=== PATIENT | male | born 1955 | race Caucasian/White ===

== ENCOUNTER 2017-05-02 09:25 | Emergency (ER) | payer BC ==
[~2017-05-02] VITALS: Ht 175.3 cm; Wt 95.0 kg
[~2017-05-02 09:25] MED LIST: AUGMENTIN875 MG PO; CALCIUM 500 +1 EAC5 PO; CIPRO500 MG PO; CRESTOR20 MG PO; CRESTOR40 MG PO; FISH OIL300 MG PO; LEVAQUIN750 MG PO; MEN'S MULTI-VI1 EACH PO; PERCOCET 5/31 TABLET PO; VITAMIN C500 M1 PO
[2017-05-02] MEDS ORDERED: DOXYCYCLINE MO100 MG PO (10:03)
[2017-05-02 10:11] VITALS: BP 131/79
== END 2017-05-02 10:12 | disposition home or self-care (01) ==
LOC: EME 09:25
DX: L03.113 Cellulitis of right upper limb (principal)
CPT/HCPCS: 99281; 99284